=== PATIENT | male | born 1975 | race Caucasian/White ===

== ENCOUNTER 2018-11-15 17:42 | Emergency (ER) | payer MEDICAID ==
[~2018-11-15] VITALS: Ht 185.4 cm; Wt 97.1 kg
[~2018-11-15 17:42] MED LIST: BACTRIM DS TAB1 EACH PO; FLEXERIL PO; HYDROCODON-ACE1 EAC7 PO; NEURONTIN 300300 M1 PO; NEURONTIN600 MG PO; NOHOMEMEDICATIONS; NORCO 5-325 TA1 EACH PO; PERCOCET 5-3251 EACH PO; PROAIR HFA8.5 GM; SYMBICORT80 MCG/4.1 INH
[2018-11-15] MEDS ORDERED: COREG6.25 MG PO (17:58)
[2018-11-15] MEDS ORDERED: LIORESAL 10 MG10 MG PO (17:58)
[2018-11-15] MEDS ORDERED: LIPITOR10 MG PO (17:58)
[2018-11-15] MEDS ORDERED: LISINOPRIL2.5 MG PO (17:58)
[2018-11-15] MEDS ORDERED: PEROXICAM (17:59)
[2018-11-15] MEDS ORDERED: BENADRYL25 MG PO (19:38)
[2018-11-15] MEDS ORDERED: PREDNISONE50 MG PO (19:38)
[2018-11-15 19:48] VITALS: BP 112/64
== END 2018-11-15 19:48 | disposition home or self-care (01) ==
LOC: M.ERS 17:42
DX: L30.9 Dermatitis, unspecified (principal); L50.9 Urticaria, unspecified; J44.9 Chronic obstructive pulmonary disease, unspecified; F17.210 Nicotine dependence, cigarettes, uncomplicated

== ENCOUNTER 2019-01-21 23:45 | Emergency (ER) | payer MEDICAID ==
[~2019-01-21] VITALS: Ht 185.4 cm; Wt 113.4 kg
[~2019-01-21 23:45] MED LIST changes: +BENADRYL25 MG PO; +COREG6.25 MG PO; +LIORESAL 10 MG10 MG PO; +LIPITOR10 MG PO; +LISINOPRIL2.5 MG PO; +PEROXICAM; +PREDNISONE50 MG PO
[2019-01-22 00:24] LABS: ABSOLUTE BASOPHILS 0.1 thou/uL (0.0-0.2); ABSOLUTE EOSINOPHILS 0.3 thou/uL (0.0-0.7); ABSOLUTE LYMPHOCYTES 2.1 thou/uL (0.8-5.3); ABSOLUTE MONOCYTES 0.5 thou/uL (0.0-1.2); ABSOLUTE NEUTROPHILS 5.2 thou/uL (1.6-8.1); BASOPHILS 0.8 %; EOSINOPHILS 3.9 %; HEMATOCRIT 43.5 % (42.0-52.0); HEMOGLOBIN 15.1 gm/dL (14.0-18.0); LYMPHOCYTES 25.5 %; MCH 30.6 pg (26.0-34.0); MCHC 34.7 g/dL (28.0-37.0); MCV 88.2 fL (80.0-100.0); MONOCYTES 6.2 %; MPV 8.8 fl. (7.2-11.1); NUCLEATED RBCS 0 /100WBC; PLATELET COUNT* 289 thou/uL (150-400); POLYS 63.6 %; RBC 4.93 mil/uL (4.50-6.00); RDW-CV 13.8 % (10.5-14.5); WBC 8.1 thou/uL (4.0-11.0)
[2019-01-22 00:29] LABS: CALCIUM 8.9 mg/dL (8.5-10.1); CREATININE 1.2 mg/dL (0.6-1.3); POTASSIUM 3.8 mmol/L (3.5-5.1)
[2019-01-22 00:34] LABS: ALBUMIN 3.7 g/dL (3.4-5.0); TOTAL BILIRUBIN 0.4 mg/dL (<0.1-1.0); TOTAL PROTEIN 7.3 g/dL (6.4-8.2)
[2019-01-22] MEDS ORDERED: PERCOCET 5-3251 EACH PO (00:42)
[2019-01-22 01:30] VITALS: BP 141/95
== END 2019-01-22 01:30 | disposition home or self-care (01) ==
LOC: M.ERS 23:45
PROVIDERS: Family Medicine
DX: S93.04XA Dislocation of right ankle joint, initial encounter (principal); S82.831A Other fracture of upper and lower end of right fibula, initial encounter for closed fracture; S01.511A Laceration without foreign body of lip, initial encounter; F17.210 Nicotine dependence, cigarettes, uncomplicated; J44.9 Chronic obstructive pulmonary disease, unspecified; Y04.0XXA Assault by unarmed brawl or fight, initial encounter; Y92.89 Other specified places as the place of occurrence of the external cause; Y93.89 Activity, other specified; Y99.8 Other external cause status

== ENCOUNTER 2019-05-19 20:02 | Emergency (ER) | payer MEDICAID ==
[~2019-05-19] VITALS: Ht 185.4 cm; Wt 51.7 kg
[2019-05-19 21:13] LABS: URINE BILIRUBIN NEGATIVE (Negative); URINE BLOOD NEGATIVE (Negative); URINE CLARITY CLEAR; URINE COLOR YELLOW; URINE GLUCOSE-RANDOM NEGATIVE (Negative); URINE KETONES NEGATIVE (Negative); URINE LEUKOCYTES-REFLEX NEGATIVE (Negative); URINE NITRITE-REFLEX NEGATIVE (Negative); URINE PROTEIN NEGATIVE (Negative); URINE UROBILINOGEN 0.2 E.U./dl (0.2-1.0)
[2019-05-19 21:32] LABS: ABSOLUTE BASOPHILS 0.1 thou/uL (0.0-0.2); ABSOLUTE EOSINOPHILS 0.2 thou/uL (0.0-0.7); ABSOLUTE LYMPHOCYTES 1.4 thou/uL (0.8-5.3); ABSOLUTE MONOCYTES 0.8 thou/uL (0.0-1.2)
[2019-05-19 21:33] LABS: ABSOLUTE NEUTROPHILS 7.6 thou/uL (1.6-8.1); BASOPHILS 0.9 %; HEMATOCRIT 45.2 % (42.0-52.0); HEMOGLOBIN 15.9 gm/dL (14.0-18.0); MCH 30.2 pg (26.0-34.0); MCHC 35.2 g/dL (28.0-37.0); MCV 85.8 fL (80.0-100.0); MONOCYTES 7.6 %; MPV 8.6 fl. (7.2-11.1); NUCLEATED RBCS 0 /100WBC; PLATELET COUNT* 249 thou/uL (150-400); POLYS 75.5 %; RBC 5.26 mil/uL (4.50-6.00); RDW-CV 13.9 % (10.5-14.5)
[2019-05-19 21:39] LABS: CALCIUM 8.7 mg/dL (8.5-10.1); CREATININE 1.2 mg/dL (0.6-1.3); POTASSIUM 4.5 mmol/L (3.5-5.1)
[2019-05-19 21:44] LABS: ALBUMIN 3.5 g/dL (3.4-5.0); TOTAL BILIRUBIN 0.6 mg/dL (<0.1-1.0); TOTAL PROTEIN 7.4 g/dL (6.4-8.2)
[2019-05-19] MEDS ORDERED: LEVAQUIN 750 M750 MG PO (23:29)
[2019-05-19] MEDS ORDERED: ZOFRAN ODT4 MG PO (23:29)
[2019-05-19] MEDS ORDERED: FLAGYL500 M1 PO (23:29)
[2019-05-19] MEDS ORDERED: HYDROCODON-ACE1 EAC7 PO (23:29)
[2019-05-19 23:45] VITALS: BP 137/85
== END 2019-05-19 23:45 | disposition home or self-care (01) ==
LOC: M.ERS 20:02
PROVIDERS: Emergency Medicine
DX: K57.32 Diverticulitis of large intestine without perforation or abscess without bleeding (principal); J44.9 Chronic obstructive pulmonary disease, unspecified; F17.210 Nicotine dependence, cigarettes, uncomplicated